=== PATIENT | female | born 1940 | race Two or more races ===

== ENCOUNTER 2021-08-03 12:59 | Emergency (ER) | payer OTHER ==
[~2021-08-03] VITALS: Ht 157.5 cm; Wt 78.9 kg
[2021-08-03] MEDS ORDERED: ULTRAM50 MG PO (13:36)
[2021-08-03] MEDS ORDERED: COZAAR25 MG PO (13:36)
[2021-08-03] MEDS ORDERED: HYDROCHLOROTHIA25 MG PO (13:36)
[2021-08-03] MEDS ORDERED: LEVOFLOXACIN500 MG PO (15:37)
== END 2021-08-03 16:05 | disposition home or self-care (01) ==
LOC: ER 12:59
DX: T25.222A Burn of second degree of left foot, initial encounter (principal); L03.116 Cellulitis of left lower limb; X11.8XXA Contact with other hot tap-water, initial encounter; Y93.89 Activity, other specified; Y92.89 Other specified places as the place of occurrence of the external cause; Y99.8 Other external cause status